=== PATIENT | male | born 1985 | race Caucasian/White ===

== ENCOUNTER 2020-12-08 10:04 | Emergency (ER) | payer OTHER, SELFPAY ==
[2020-12-08] VITALS (13 sets, daily range): BP systolic 133–153; BP diastolic 74–95; PULSE 68–116; RESP 12–27; TEMP 37; O2SAT 92–97
--- NOTE | ~2020-12-08 | XR_ITS ---
EXAMINATION: XR chest 2V 12/08/2020 11:21 INDICATION: Dizziness PROCEDURE: 2 view chest COMPARISON: No prior studies for comparison. FINDINGS: The lungs are clear. The cardiomediastinal silhouette is within normal limits. There are no pleural effusions. There is no pneumothorax suspected. IMPRESSION: 1: NO ACUTE CARDIOPULMONARY DISEASE. Reviewed, dictated and finalized at location A. H GRADER SUPERVISOR
--- NOTE | 2020-12-08 10:23 | ECG_ITS ---
Measurements Intervals [employer] Rate: 110 P: 60 DC: 120 QRS: 46 QRSD: 80 T: -1 QT: 319 QTc: 433 Interpretive Statements SINUS TACHYCARDIA BORDERLINE ST-T WAVE ABNORMALITY- INFERIOR LEADS BASELINE ARTIFACT- V3 ABNORMAL ECG Electronically Signed On 12-08-2020 10:37:53 COMBINATION OPERATOR by Dallin Mejias D.O.
--- NOTE | 2020-12-08 10:47 | ED.DIZZY ---
HPI - Dizziness General Chief Complaint: Dizziness Stated Complaint: lt sided chest pain, dizziness Time Seen by Provider: 12/08/20 10:22 Source: patient Mode of arrival: ambulatory Limitations: no limitations History of Present Illness HPI Narrative: This is a 35-year-old male that presents the emergency department for lightheadedness this week. Reports starting on Friday he has had intermittent episodes of feeling lightheaded. Reports he also feels very anxious and panicky during these episodes. Does not report any previous history of anxiety. Reports he feels like he could pass out. He was seen at the urgent care this morning and sent here for further evaluation. Reports over the last couple of days he has had intermittent left-sided chest pain that is sharp and lasts briefly and is relieved on its own. Reports some achiness. Denies fever, cough, shortness of breath, abdominal pain, vomiting, or dysuria. Related Data Allergies Allergy/AdvReac Type Severity Reaction Status Date / Time No Known Allergies Allergy Verified 12/08/20 10:20 Review of Systems Review of Systems: Narrative: CONSTITUTIONAL: Denies fever ENT: Denies congestion, sore throat CARDIOVASCULAR: Denies chest pain RESPIRATORY: Denies cough or dyspnea. GASTROINTESTINAL: Denies abdominal pain, nausea, vomiting GENITOURINARY: Denies dysuria All systems reviewed & are unremarkable except as noted in HPI and below PMFSH Past Medical History Medical History (Updated 12/08/20 @ 13:02 by Mayuri Larios PA-C) No active medical problems Social History Social History (Updated 12/08/20 @ 10:49 by Mayuri Larios PA-C) Smoking status: Current some day smoker Substance use: never Exam Narrative: Exam Narrative: GENERAL: Well-appearing, well-nourished, and in no acute distress. HEAD: Normocephalic, atraumatic. EYES: PERRLA and EOMI. ENT: Nares clear, no rhinorrhea or epistaxis. Mucous membranes moist. Oropharynx without tonsillar hypertrophy exudate or other lesions. Bilateral TMs [place] non-bulging NECK: Supple. No adenopathy or masses. CHEST: Clear to auscultation. No respiratory distress. No wheezes rales or rhonchi HEART: Regular rate and rhythm. No murmur heard. Normal peripheral pulses. ABDOMEN: Soft, nontender, nondistended, normal active bowel sounds. EXTREMITIES: Normal range of motion. No edema. SKIN: Warm, dry, no rash. NEURO: No focal deficits. Alert and oriented x3. Cranial nerves II through XII grossly intact. Normal [id number] PSYCH: Normal mood and affect Course Vital Signs Vital signs: Vital Signs Temperature 98.6 F 12/08/20 10:13 Pulse Rate 113 H 12/08/20 10:13 Respiratory Rate 16 12/08/20 10:13 Blood Pressure 153/95 H 12/08/20 10:13 Pulse Oximetry 95 12/08/20 10:13 Temperature 98.6 F 12/08/20 10:13 Pulse Rate 87 12/08/20 11:16 Respiratory Rate 19 12/08/20 11:16 Blood Pressure 140/90 12/08/20 11:16 Pulse Oximetry 94 12/08/20 11:16 MDM - Dizziness MDM Narrative Medical decision making narrative: Patient presents the emergency department for intermittent episodes of lightheadedness this week. He is afebrile and nontoxic-appearing. Vitals are stable. He is not orthostatic. Mildly tachycardic upon arrival, this improved with IV fluid administration. CBC with mild leukocytosis, although no localizing infectious symptoms and patient is afebrile. Metabolic panel without concerning findings. Baseline troponin is negative. TSH is normal. Chest x-ray without acute findings. EKG with nonspecific ST changes, but patient has no active chest pain and his troponin is negative. Patient is stable and felt appropriate for further outpatient evaluation. He was given warnings to return to the ER Lab Data Attestation: I reviewed the patient's lab results. Result diagrams: 12/08/20 10:41 12/08/20 10:41 Labs: Lab Results 12/08/20 12/08/20 12/08/20 Range/Units
[2020-12-08 10:52] LABS: Basophils Percent Auto 0.2 % (0.2-1.2); Eosinophils Absolute Auto 0.1 K/mm3 (0-0.3); Eosinophils Percent Auto 0.5 % (0-4.4); Hematocrit 51.5 % (42.0-52.0); Hemoglobin 17.6 g/dL (14.0-18.0); Immature Granulocyte Absolute 0.04 K/mm3 (0.00-0.031); Immature Granulocyte Percent A 0.3 % (0-0.5); Lymphocytes Absolute Auto 1.17 K/mm3 (0.9-3.2); Lymphocytes Percent Auto 8.8 % (18.3-44.2); Mean Corpuscular HGB Conc 34.2 g/dl (32-36); Mean Corpuscular Hemoglobin 30.9 pg (26-34); Mean Corpuscular Volume 90.5 fl (80-100); Mean Platelet Volume 11.9 fl (7.4-10.4); Monocytes Absolute Auto 0.6 K/mm3 (0.1-0.6); Monocytes Percent Auto 4.2 % (2.6-8.5); Neutrophils Absolute Auto 11.4 K/mm3 (1.3-6.7); Platelet Count Result 234 k/mm3 (150-375); Red Blood Count 5.69 M/mm3 (4.6-6.20); Red Cell Distribution Width 12.3 % (11.5-14.5); White Blood Count 13.2 K/mm3 (4.5-10.0)
[2020-12-08 11:01] LABS: INR 0.9; Prothrombin Time 13.2 Seconds (11.1-14.7)
[2020-12-08 11:02] LABS: Partial Thromboplastin Time 28.6 SECONDS (22.3-36.8)
[2020-12-08 11:06] LABS: Alanine Aminotransferase 20 U/L (4-50); Albumin Level 4.9 g/dL (3.5-5.1); Alkaline Phosphatase 50 U/L (38-126); Anion Gap 10 mmol/L (8-16); Aspartate Amino Transferase 24 U/L (17-59); Bilirubin,Total 1.2 mg/dL (0.2-1.3); Blood Urea Nitrogen 19 mg/dL (9-20); Calcium 9.8 mg/dL (8.4-10.2); Carbon Dioxide 26 mmol/L (22-30); Chloride 101 mmol/L (98-107); Estimated CRCL calculation 82 ml/min; Estimated Glomerular Filt Rate > 60; Glucose 132 mg/dL (75-110); Potassium 3.7 mmol/L (3.4-5.0); Sodium 137 mmol/L (137-145)
[2020-12-08] MEDS: SODIUM CHLORIDE 0.9% IV 1,000 ML 999 ML IV CONT (11:13)
[2020-12-08 11:17] LABS: Troponin I < 0.012 ng/mL (0.000-0.034)
[2020-12-08 12:02] LABS: Thyroid Stimulating Hormone Reflex 0.949 uIU/mL (0.465-4.68)
== END 2020-12-08 13:20 | disposition home or self-care (01) ==
PROVIDERS: Physician Assistant; Emergency Provider Emergency Medicine
DX: R42 Dizziness and giddiness (principal); F17.200 Nicotine dependence, unspecified, uncomplicated; R00.0 Tachycardia, unspecified; R94.31 Abnormal electrocardiogram [ECG] [EKG]
CPT/HCPCS: 36415; 71046; 80053; 84443; 84484; 85025; 85610; 85730; 93005; 96360; 99284; J7030